=== PATIENT | female | born 1940 | race African-American/Black ===

== ENCOUNTER 2018-06-08 18:15 | Inpatient (IN) ==
[2018-06-08 19:09] LABS: PT Patient Result 10.4 SECS
[2018-06-08 19:12] LABS: Alanine Aminotransferase 19 U/L (13-56); Albumin 2.6 G/DL (3.4-5.0); Alkaline Phosphatase 129 U/L (45-117); Aspartate Amino Transferase 23 U/L (0-37); Blood Urea Nitrogen 4 MG/DL (7-18); Calcium 8.7 MG/DL (8.5-10.1); Glucose 146 MG/DL (74-106); Osmolality,Calculated 265.4 MOS/KG (273-304); Potassium 3.7 MMOL/L (3.5-5.1); Sodium 133 MMOL/L (136-145); Total Protein 8.1 G/DL (6.4-8.3); Troponin I < 0.015 NG/ML (0.00-0.045)
[2018-06-08 19:19] LABS: Basophils # 0.1 10*3/uL (0.0-0.2); Basophils % 0.3 % (0.0-0.8); Eosinophils % 0.1 % (0.00-10.9); Hemoglobin 9.5 GM/DL (12.0-16.0); Immature Granulocytes % 0.5 %; Immature Granulocytes Absolute 0.09 #; Lymphocytes # 1.8 10*3/uL (1.4-4.0); Lymphocytes % 10.9 % (21.3-54.2); Mean Corpuscular HGB Conc 28.8 GM/DL (32-36); Mean Corpuscular Hemoglobin 19 PG (27-34); Mean Corpuscular Volume 66.7 FL (87-102); Mean Platelet Volume 11.3 FL (9.6-12.0); Monocytes # 0.6 10*3/uL (0.11-0.8); Monocytes % 3.7 % (1.7-12.7); Neutrophils # 14.1 10*3/uL (1.4-7.4); Neutrophils % 84.5 % (38.7-73.9); Platelet Count 589 T/CUMM (130-400); Red Blood Count 4.95 MC/CUMM (3.8-5.5); Red Cell Distribution Width 23.9 % (9.3-17.3); White Blood Count 16.7 T/CUMM (4-12)
[2018-06-08] MEDS ORDERED: ONDANSETRON 4 MG/2 ML VIAL IV STA (19:38)
[2018-06-08] MEDS ORDERED: MORPHINE 4 MG/1 ML VIAL IV STA (19:38)
[2018-06-08] MEDS ORDERED: PANTOPRAZOLE 40 MG VIAL IV STA (19:38)
[2018-06-08] MEDS ORDERED: ALUM/MAG/SIMETH/LIDO VISC 1:1 30 ML BOTTLE PO STA (19:38)
[2018-06-08] MEDS ORDERED: NITROGLYCERIN 2% OINT 1 INCH/GM PACK TOP STA (19:38)
[2018-06-08] MEDS ORDERED: ASPIRIN 325 MG TABLET PO STA (19:38)
[2018-06-08 20:29] LABS: Hypochromasia 1+; Polychromasia Few
[2018-06-08 20:30] LABS: Ovalocytes 1+; Platelet Estimate Normal; Target Cells 1+
[2018-06-08 21:43] LABS: Apearance,Urine CLEAR (Clear); Bacteria,Urine Occasional /HPF (Few); Bilirubin,Urine Negative (Negative); Blood, Urine Negative (Negative); Glucose,Urine (UA) Negative (Negative); Ketones,Urine 5 mg/dL (Negative); Mucus,Urine Occasional /LPF (Occasional); Nitrite,Urine Positive (Negative); Protein,Urine Negative; RBC,Urine <1 /HPF (0-4); Squamous Epithelial Cell,Urine Occasional /HPF (0-10); Urine Color Yellow (Yellow); Urine Specific Gravity 1.004 (1.001-1.035); Urine Urobilinogen < 2.0 EU/DL (0.2-1.0); WBC,Urine 2 /HPF (0-6)
[2018-06-08] MEDS ORDERED: ONDANSETRON 4 MG/2 ML VIAL IV PRN (22:30)
[2018-06-08] MEDS ORDERED: ACETAMINOPHEN 325 MG TABLET PO PRN (22:30)
[2018-06-08] MEDS ORDERED: MORPHINE 4 MG/1 ML VIAL IV PRN (22:30)
[2018-06-08] MEDS: SODIUM CHLORIDE 0.9% 1,000 ML IV SCH (23:36)
[2018-06-08] MEDS: PIPERACILLIN/TAZOBACTAM 3,375 MG in SODIUM CHLORIDE 0.9% 100 ML IV SCH (23:36)
[2018-06-09 02:24] LABS: Albumin 2.5 G/DL (3.4-5.0); Basophils # 0.1 10*3/uL (0.0-0.2); Basophils % 0.3 % (0.0-0.8); Bilirubin,Total 1.1 MG/DL (0.2-1.0); Calcium 8.6 MG/DL (8.5-10.1); Eosinophils % 0.1 % (0.00-10.9); Hemoglobin 9.6 GM/DL (12.0-16.0); Immature Granulocytes % 0.6 %; Immature Granulocytes Absolute 0.11 #; Osmolality,Calculated 269.1 MOS/KG (273-304); Potassium 4.3 MMOL/L (3.5-5.1); Red Cell Distribution Width 23.4 % (9.3-17.3); Total Protein 7.3 G/DL (6.4-8.3)
[2018-06-09 02:59] LABS: Hematocrit 32.8 VOL% (35.7-47.0); Lymphocytes # 1.4 10*3/uL (1.4-4.0); Lymphocytes % 8.2 % (21.3-54.2); Mean Corpuscular HGB Conc 29.3 GM/DL (32-36); Mean Corpuscular Hemoglobin 19 PG (27-34); Mean Corpuscular Volume 65.7 FL (87-102); Monocytes # 1.1 10*3/uL (0.11-0.8); Monocytes % 6.1 % (1.7-12.7); NRBC # 0.02 10*3/uL; Neutrophils # 14.8 10*3/uL (1.4-7.4); Neutrophils % 84.7 % (38.7-73.9); Platelet Count 367 T/CUMM (130-400); Red Blood Count 4.99 MC/CUMM (3.8-5.5); White Blood Count 17.5 T/CUMM (4-12)
[2018-06-09 04:28] LABS: Hypochromasia 1+; Platelet Estimate Adequate
[2018-06-09] MEDS: PIPERACILLIN/TAZOBACTAM 3,375 MG in SODIUM CHLORIDE 0.9% 100 ML IV SCH ×3 (05:59→22:04)
[2018-06-09] MEDS: PANTOPRAZOLE 40 MG VIAL IV SCH ×2 (08:14→09:21)
[2018-06-09] MEDS: SODIUM CHLORIDE 0.9% 1,000 ML IV SCH ×3 (10:28→22:04)
[2018-06-09] MEDS: CIPROFLOXACIN 500 MG TABLET PO SCH (21:09)
[2018-06-10] MEDS: PIPERACILLIN/TAZOBACTAM 3,375 MG in SODIUM CHLORIDE 0.9% 100 ML IV SCH (04:38)
[2018-06-10] MEDS: SODIUM CHLORIDE 0.9% 1,000 ML IV SCH (04:38)
[2018-06-10 04:54] LABS: Basophils # 0.1 10*3/uL (0.0-0.2); Basophils % 0.2 % (0.0-0.8); Eosinophils % 0.1 % (0.00-10.9); Hematocrit 29.3 VOL% (35.7-47.0); Hemoglobin 8.6 GM/DL (12.0-16.0); Immature Granulocytes % 1.6 %; Immature Granulocytes Absolute 0.52 #; Lymphocytes # 2.4 10*3/uL (1.4-4.0); Lymphocytes % 7.3 % (21.3-54.2); Mean Corpuscular HGB Conc 29.4 GM/DL (32-36); Mean Corpuscular Hemoglobin 20 PG (27-34); Mean Corpuscular Volume 66.3 FL (87-102); Mean Platelet Volume 10.8 FL (9.6-12.0); Monocytes # 1.6 10*3/uL (0.11-0.8); Monocytes % 4.8 % (1.7-12.7); Neutrophils # 28.4 10*3/uL (1.4-7.4); Platelet Count 461 T/CUMM (130-400); Red Blood Count 4.42 MC/CUMM (3.8-5.5); Red Cell Distribution Width 22.5 % (9.3-17.3)
[2018-06-10 05:08] LABS: Bilirubin,Total 1.7 MG/DL (0.2-1.0); Osmolality,Calculated 270.1 MOS/KG (273-304); Total Protein 6.8 G/DL (6.4-8.3)
[2018-06-10 05:20] LABS: Lymphocytes 9 % (20-55); Platelet Estimate Normal; Polychromasia Few; Segmented Neutrophils 91 % (50-85); Target Cells Few; Total Cells Counted 100
[2018-06-10 05:21] LABS: Hypochromasia 1+; Microcytosis 1+
[2018-06-10 07:30] VITALS: BP 115/65
[2018-06-10] MEDS: PANTOPRAZOLE 40 MG VIAL IV SCH (08:45)
[2018-06-10] MEDS: CIPROFLOXACIN 500 MG TABLET PO SCH (08:45)
== END 2018-06-10 09:50 | disposition left against medical advice (07) | DRG 445 ==
LOC: N.ED 18:15 → N.EDINP 21:12 → N.3E 21:52
PROVIDERS: ADMIT Surgery; ATTEND Surgery